=== PATIENT | female | born 1990 | race Caucasian/White ===

== ENCOUNTER 2022-06-14 01:27 | Emergency (ER) | payer OTHER ==
[2022-06-14 02:07] VITALS: BP 122/61; PULSE 78; RESP 16; TEMP 98.6; BMI 23.3
== END 2022-06-14 05:10 | disposition left against medical advice (07) ==
LOC: JER 01:27
DX: R07.9 Chest pain, unspecified (principal)
CPT/HCPCS: 93005; 93010; 99283-25